=== PATIENT | male | born 2000 | race Caucasian/White ===

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

== ENCOUNTER 2021-02-01 20:24 | Emergency (ER) | payer BC, MEDICAID ==
[2021-02-01 21:03] VITALS: BP 134/79; PULSE 80
== END 2021-02-01 22:13 | disposition left against medical advice (07) ==
LOC: JD.ED 20:24
DX: Z53.21 Procedure and treatment not carried out due to patient leaving prior to being seen by health care provider (principal)

== ENCOUNTER 2021-02-16 20:14 | Emergency (ER) | payer BC ==
[2021-02-16 20:59] VITALS: BP 119/80; PULSE 82
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
--- NOTE | 2021-02-17 07:12 | CR ---
Right ankle: 4 views of the right ankle were obtained. Comparison: No prior ankle study is available. Slightly comminuted fracture is noted within the distal tip of the fibula. Alignment remains close to anatomic. Old deformity compatible with old healed fracture is noted within the medial malleolus. Soft tissue swelling is noted. Ankle mortise is symmetric. No additional fracture or other bony abnormality is appreciated. Several soft tissue calcifications are noted within the lower anterior aplacio. Impression: 1. Slightly comminuted fracture within the distal fibula. 2. Soft tissue swelling. 3. Other findings which are chronic as noted above. Diagnostic code #3
== END 2021-02-16 21:50 | disposition home or self-care (01) ==
LOC: JD.ED 20:14
DX: S82.831A Other fracture of upper and lower end of right fibula, initial encounter for closed fracture (principal); Z88.5 Allergy status to narcotic agent; Z88.8 Allergy status to other drugs, medicaments and biological substances; Z79.82 Long term (current) use of aspirin; Z72.0 Tobacco use; X50.1XXA Overexertion from prolonged static or awkward postures, initial encounter; Y93.44 Activity, trampolining
CPT/HCPCS: 73610-26-RT; 73610-RT; 99283; 99283-25

== ENCOUNTER 2021-11-25 17:55 | Emergency (ER) | payer BC, MEDICAID ==
[2021-11-25] MEDS ORDERED: Sodium Chloride 0.9% 10 ML Syringe FLUSH PRN (18:39)
[2021-11-25] MEDS ORDERED: Iopamidol 755 Mg/ML 100 ML Bottle IVPUSH ONE (19:09)
[2021-11-25] MEDS ORDERED: Sodium Chloride 0.9% 100 ML IV SCH (19:15)
[2021-11-25] MEDS ORDERED: HYDROmorphone 0.5 MG/0.5 ML Syringe IVPUSH ONE (20:12)
[2021-11-25 20:52] VITALS: BP 132/91; PULSE 67
== END 2021-11-25 21:00 | disposition home or self-care (01) ==
LOC: JD.ED 17:55
DX: M54.2 Cervicalgia (principal); Z79.82 Long term (current) use of aspirin; Z88.5 Allergy status to narcotic agent; Z88.8 Allergy status to other drugs, medicaments and biological substances
CPT/HCPCS: 36415; 70498; 80053; 85025; 96374; 99284; J1170; J3490; Q9967